=== PATIENT | female | born 1990 | race Caucasian/White ===

== ENCOUNTER 2017-01-09 17:19 | Emergency (ER) | payer OTHER ==
[~2017-01-09] VITALS: Ht 160 cm; Wt 65.8 kg
[~2017-01-09 17:19] MED LIST: ATARAX HCL25 MG PO; AUGMENTIN 875 M1 TAB PO; BENADRYL25 MG; ENBREL50 MG/ML SUBQ; FOLATE1 MG PO; MEXATE2.5 MG PO; PLAQUENIL200 M1 PO; PREDNISONE10 MG PO
[2017-01-09] MEDS ORDERED: MEXATE2.5 MG (17:44)
[2017-01-09 17:51] VITALS: BP 117/75
--- NOTE | 2017-01-09 18:46 | NUR ---
Patient ambulated to bed 1 with family. RN evaluating patient at bedside.
[2017-01-09] MEDS ORDERED: NACL 0.9% 1,000 ML IV SCH (18:48)
[2017-01-09] MEDS ORDERED: ONDANSETRON 4 MG/2 ML VIAL IVP ONE (18:50)
--- NOTE | 2017-01-09 19:03 | NUR ---
PATIENT PRESENTS TO ED WITH ABDOMINAL PAIN W N/V SINCE 1629 TODAY . SKIN IS PINK/WARM/DRY; AAOX4 WITH EVEN AND STEADY GAIT; LUNGS CLEAR BL; HR EVEN AND REGULAR; PT DENIES ANY FEVER, CP, SOB, OR COUGH AT THIS TIME; PATIENT STATES INTERMITTENT, SHARP PAIN OF 1/10 AT THIS TIME; VSS; PATIENT POSITIONED FOR COMFORT; HOB ELEVATED; BEDRAILS UP X2; BED DOWN. ER MD MADE AWARE OF PT STATUS.
--- NOTE | 2017-01-09 19:14 | NUR ---
TPt report given to FISH LOMBARDO. Transfer of care at this time.
--- NOTE | 2017-01-09 19:30 | NUR ---
US TECH AT THE BEDSIDE.
--- NOTE | 2017-01-09 20:00 | NUR ---
26 YEAR OLD FEMALE CAME IN WITH CHIEF COMPLAINT OF ABDOMINAL PAIN SINCE 16:[address] JIMENEZ EXAMINING PATIENT AT THE BEDSIDE. ACCORDING TO THE PATIENT, SHE HAS GALL STONES. MILD PAIN 1-2/10. NO NAUSEA OR VOMITING AT THE MOMENT. NO SIGNS OF DISTRESS OR DISCOMFORT AT THIS TIME. VITAL SIGNS STABLE. PER DR. JIMENEZ, SHE DOESN'T NEED IV INSERTION VERBALIZED INFRONT OF THE PATIENT. PATIENT ASKED IF SHE CAN DRINK WATER AND DR. JIMENEZ VERBALIZED OK TO DRINK WATER.
--- NOTE | 2017-01-09 20:01 | NUR ---
Dr. Hare evaluating patient at bedside.
[2017-01-09 20:58] VITALS: BP 128/71
--- NOTE | 2017-01-09 20:58 | NUR ---
Patient discharged with v/s stable. Written and verbal after care instructions given and explained BY DR JIMENEZ. Patient verbalized understanding. Ambulatory with steady gait. All questions addressed prior to discharge. Advised to follow up with PMD.
== END 2017-01-09 20:58 | disposition home or self-care (01) ==
LOC: MED 17:19
DX: K80.80 Other cholelithiasis without obstruction (principal); R03.0 Elevated blood-pressure reading, without diagnosis of hypertension; Z88.0 Allergy status to penicillin; M06.9 Rheumatoid arthritis, unspecified; Z90.11 Acquired absence of right breast and nipple
CPT/HCPCS: 76700; 80053; 81002; 81025; 82150; 83690; 85025; 99285; J7030; Q0092